=== PATIENT | female | born 1985 | race Two or more races ===

== ENCOUNTER 2022-05-06 13:36 | Emergency (ER) | payer OTHER ==
[~2022-05-06] VITALS: Ht 157.5 cm; Wt 77.6 kg
== END 2022-05-06 17:15 | disposition home or self-care (01) ==
LOC: ER 13:36
DX: O20.9 Hemorrhage in early pregnancy, unspecified (principal); Z3A.01 Less than 8 weeks gestation of pregnancy; Z88.2 Allergy status to sulfonamides; Z91.040 Latex allergy status

== ENCOUNTER 2022-06-19 15:00 | Outpatient (CLI) | payer OTHER | END 2022-06-19 17:08 | disposition home or self-care (01) | LOC: PRENATAL 15:00 | PROVIDERS: ATTEND Obstetrics & Gynecology Maternal & Fetal Medicine | DX: O36.80X0 Pregnancy with inconclusive fetal viability, not applicable or unspecified (principal); O34.219 Maternal care for unspecified type scar from previous cesarean delivery; Z3A.12 12 weeks gestation of pregnancy ==

== ENCOUNTER 2022-08-14 14:01 | Outpatient (CLI) | payer OTHER | END 2022-08-14 15:41 | disposition home or self-care (01) | LOC: PRENATAL 14:01 | PROVIDERS: ATTEND Obstetrics & Gynecology Maternal & Fetal Medicine | DX: O35.9XX0 Maternal care for (suspected) fetal abnormality and damage, unspecified, not applicable or unspecified (principal); O35.3XX0 Maternal care for (suspected) damage to fetus from viral disease in mother, not applicable or unspecified; O34.219 Maternal care for unspecified type scar from previous cesarean delivery; O41.00X0 Oligohydramnios, unspecified trimester, not applicable or unspecified; Z3A.20 20 weeks gestation of pregnancy ==